=== PATIENT | female | born 1970 | race Caucasian/White ===

== ENCOUNTER → 2020-03-29 | Outpatient (CLI) | payer BC ==
[2006-01-18 16:30] VITALS: PULSE 79; TEMP 97.8
== END ==
LOC: MC.RAD 10:06
DX: Z12.31 Encounter for screening mammogram for malignant neoplasm of breast (principal)

== ENCOUNTER → 2021-11-13 | Outpatient (CLI) | payer BC ==
[2006-01-18 16:30] VITALS: TEMP 97.8
== END ==
LOC: MC.RAD 10:22
DX: Z12.31 Encounter for screening mammogram for malignant neoplasm of breast (principal)